=== PATIENT | female | born 1985 | race African-American/Black ===

== ENCOUNTER 2019-05-03 15:31 | Emergency (ER) | payer OTHER ==
[~2019-05-03] VITALS: Ht 160 cm; Wt 59.0 kg
[2019-05-03 15:31] VITALS: BP 105/65
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
[2019-05-03] MEDS ORDERED: Methocarbamol 750mg tab ORAL ONE ×2 (15:45)
[2019-05-03] MEDS ORDERED: Ketorolac 30mg Inj ONE (15:45)
[2019-05-03] MEDS ORDERED: Ketorolac 30mg Inj IM ONE (15:45)
--- NOTE | 2019-05-03 15:49 | NUR ---
ED Nurse Note: PT taken to X ray via WC.
--- NOTE | 2019-05-03 16:13 | NUR ---
ED Nurse Note: Back from x ray
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
[2019-05-03] MEDS ORDERED: IBUPROFEN600 MG ORAL (17:06)
[2019-05-03] MEDS ORDERED: LIDODERM700 M1 TOPIC (17:06)
[2019-05-03] MEDS ORDERED: ROBAXIN-500MG ORAL (17:06)
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
[2019-05-03 17:11] VITALS: BP 110/70
--- NOTE | 2019-05-03 17:11 | NUR ---
ER DISCHARGE NOTE: Patient is cleared to be discharged per ERMD, pt is aox4, on room air, with stable vital signs. pt was given dc and prescription instructions, pt was able to verbalize understanding, pt id band removed without complications. pt is able to ambulate with steady gait. pt took all belongings.
== END 2019-05-03 17:11 | disposition home or self-care (01) ==
LOC: EDBD 15:31 → EMR 17:03
DX: S30.0XXA Contusion of lower back and pelvis, initial encounter (principal); V43.62XA Car passenger injured in collision with other type car in traffic accident, initial encounter; Y92.9 Unspecified place or not applicable
CPT/HCPCS: 72131; 72192; 96372; J1885; Z7502; 99284